=== PATIENT | female | born 2005 | race African-American/Black ===

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

== ENCOUNTER 2023-11-02 23:37 | Emergency (ER) | payer OTHER ==
[2023-11-03 00:08] LABS: BASOPHILS % (AUTO) 0.4 %; EOSINOPHILS % (AUTO) 0.6 %; HCT - HEMATOCRIT 36.1 % (37.0-47.0); HGB - HEMOGLOBIN 11.7 g/dL (12.0-16.0); LYMPHOCYTES # (AUTO) 2.7 10^3/uL (1.5-3.5); LYMPHOCYTES % (AUTO) 53.4 %; MEAN CORPUSCULAR HEMOGLOBIN 31.5 pg (27.0-31.0); MEAN CORPUSCULAR HGB CONC 32.4 g/dL (32.0-36.0); MEAN CORPUSCULAR VOLUME 97.3 fL (81.0-99.0); MONOCYTES # (AUTO) 0.5 10^3/uL (0.0-1.0); MONOCYTES % (AUTO) 9.4 %; NEUTROPHILS # (AUTO) 1.9 10^3/uL (1.5-6.6); NEUTROPHILS % (AUTO) 36.2 %; PLT - PLATELET COUNT 270 10^3/uL (130-450); RED BLOOD COUNT 3.71 10^6/uL (4.20-5.40); RED CELL DISTRIBUTION WIDTH 13.2 % (12.0-15.0); WHITE BLOOD COUNT 5.1 x10^3/uL (4.8-10.8)
[2023-11-03 00:24] LABS: ALBUMIN 4.2 g/dL (3.2-5.5); ALBUMIN/GLOBULIN RATIO 1.6 (1.0-2.2); BILIRUBIN,TOTAL 0.3 mg/dL (0.2-1.0); CALCIUM 9.1 mg/dL (8.5-10.3); CREATININE 0.7 mg/dL (0.6-1.3); POTASSIUM 4.2 mmol/L (3.5-4.5); TOTAL PROTEIN 6.9 g/dL (6.4-8.9)
[2023-11-03 00:39] LABS: BILIRUBIN,URINE NEGATIVE (NEGATIVE); GLUCOSE, URINE (UA) NEGATIVE (NEGATIVE); KETONES,URINE (UA) NEGATIVE (NEGATIVE); LEUKOCYTE ESTERASE, URINE NEGATIVE (NEGATIVE); NITRITE,URINE NEGATIVE (NEGATIVE); OCCULT BLOOD,URINE MODERATE (NEGATIVE); PROTEIN,URINE NEGATIVE (NEGATIVE); UROBILINOGEN,URINE 0.2 (NORMAL) E.U./dL (NORMAL)
[2023-11-03 00:45] LABS: HCG UR QUAL NEGATIVE
[2023-11-03 00:50] LABS: CLARITY,URINE CLEAR (CLEAR)
[2023-11-03 01:04] LABS: BACTERIA,URINE Few /HPF (None Seen); RBC,URINE 0-5 /HPF (0-5); SQUAMOUS EPITHELIAL CELL,UR FEW Squamous (<= Few)
--- NOTE | 2023-11-03 01:55 | ED Physician Documentation ---
PD HPI NVD - Stated complaint Stated Complaint: N/V/D - Chief complaint Chief Complaint: Abd Pain - History obtained from History obtained from: Patient - Additonal information Additional information: The patient comes to the emergency department chief complaint of nausea, vomiting, and diarrhea that started 6 days ago. She states that she just has a little nausea left but has been able to hold down water and soup for the last couple of days; however, she is continue to have watery diarrhea all week until the present time. She denies any fevers or chills. No body aches. No dysuria or vaginal symptoms. She is otherwise fairly healthy. Nobody else who ate the same food as her is sick. She has not done any exotic traveling or camping. No other complaints at this time. No sick contacts that she knows of. She is here because she is just concerned that her symptoms have gone on this long. She states she does not really have any abdominal pain except a little bit in her lower abdomen that feels like cramping and worsens right before she has a bowel movement. PD PAST MEDICAL HISTORY - Past Medical History Past Medical History: Yes - Past Surgical History Past Surgical History: No - Present Medications Home Medications: Ambulatory Orders Medication Instructions Recorded Confirmed Detropan 5 mg PO DAILY 11/02/23 Loperamide [Imodium] 2 mg PO BID PRN #10 cap 11/03/23 Ondansetron Odt [Zofran] 4 mg TL Q6H PRN #10 tablet 11/03/23 - Allergies Allergies/Adverse Reactions: Allergies Allergy/AdvReac Type Severity Reaction Status Date / Time Penicillins AdvReac Mild Unknown Verified 11/02/23 23:47 - Social History Does the pt smoke?: No Smoking Status: Never smoker Does the pt drink ETOH?: No Does the pt have substance abuse?: No - Immunizations Immunizations are current?: Yes - POLST Patient has POLST: No PD ED PE NORMAL - Vitals Vital signs reviewed: Yes - General General: Alert and oriented X 3, No acute distress, Well developed/nourished - HEENT HEENT: Atraumatic, EOMI, Moist mucous membranes - Neck Neck: Supple, no meningeal sign - Cardiac Cardiac: RRR, No murmur - Respiratory Respiratory: No respiratory distress, Clear bilaterally - Abdomen Abdomen: Soft, Non distended, Other (Slight tenderness throughout lower abdomen, no rebound or guarding.) - Derm Derm: Normal color, Warm and dry, No rash - Extremities Extremities: No deformity - Neuro Neuro: Other (Alert, grossly intact.) - Psych Psych: Normal mood, Normal affect Results - Vitals Vitals: Vital Signs - 24 hr 11/02/23 23:42 Temperature 36.5 C Heart Rate 64 Respiratory 16 Rate Blood Pressure 137/62 H O2 Saturation 100 Oxygen O2 Source Room air - Labs Labs: Laboratory Tests 11/02/23 11/02/23 11/03/23 23:59 23:59 00:12 WBC 5.1 RBC 3.71 L Hgb 11.7 L Hct 36.1 L MCV 97.3 MCH 31.5 H MCHC 32.4 RDW 13.2 Plt Count 270 MPV 9.0 Neut # (Auto) 1.9 Lymph # (Auto) 2.7 [place] # (Auto) 0.5 Eos # (Auto) 0.0 Baso # (Auto) 0.0 Absolute Nucleated RBC 0.00 Nucleated RBC % 0.0 Sodium 139 Potassium 4.2 Chloride 107 Carbon Dioxide 27 Anion Gap 5.0 L BUN 17 Creatinine 0.7 Estimated GFR (MDRD) 129 Glucose 96 Calcium 9.1 Total Bilirubin 0.3 AST 22 ALT 21 Alkaline Phosphatase 38 L Total Protein 6.9 Albumin 4.2 Globulin 2.7 Albumin/Globulin Ratio 1.6 Lipase 18 Urine Color YELLOW Urine Clarity CLEAR Urine pH 7.0 Ur Specific [place] 1.025 Urine Protein NEGATIVE Urine Glucose (UA) NEGATIVE Urine Ketones NEGATIVE Urine Occult Blood MODERATE H Urine Nitrite NEGATIVE Urine Bilirubin NEGATIVE Urine Urobilinogen 0.2 (NORMAL) Ur Leukocyte Esterase NEGATIVE Urine RBC 0-5 Urine WBC 4-5 Ur Squamous Epith Cells FEW Squamous Urine Bacteria Few Ur Microscopic Review INDICATED Urine Culture Comments NOT INDICATED Urine HCG, Qual 11/03/23 00:12 WBC RBC Hgb Hct MCV MCH MCHC RDW Plt Count MPV Neut # (Auto) Lymph # (Auto) [place] # (Auto) Eos # (Auto) Baso # (Auto) Absolute Nucleated RBC Nucleated RBC % Sodium Potassium Chloride Carbon Dioxide Anion Gap BUN Creatinine Estimated GFR (MDRD) Glucose Calcium Total Bilirubin AST ALT Alkaline Phosphatase Total Protein Albumin Globulin Albumin/Globulin Ratio Lipase Urine Color Urine Clarity Urine pH Ur Specific [place] Urine Protein Urine Glucose (UA) Urine Ketones Urine Occult Blood Urine Nitrite Urine Bilirubin Urine Urobilinogen Ur Leukocyte Esterase Urine RBC Urine WBC Ur Squamous Epith Cells Urine Bacteria Ur Microscopic Review Urine Culture Comments Urine HCG, Qual NEGATIVE PD Medical Decision Making - ED course Complexity details: reviewed results, re-evaluated patient, considered differential, d/w patient ED course: The patient was treated with Zofran and Imodium and worked up with labs, which were unremarkable. We have discussed that this is most likely a viral illness, and the timeline is consistent with the many other cases of the same thing that we have been seeing recently. I have discussed symptomatic management at home with the patient and who prescribed her Zofran and Imodium for there. We have discussed the need for follow-up with her primary care physician if her symptoms do not resolve within the next week. Departure - Departure Disposition: Home, Self Care Clinical Impression: Gastroenteritis Condition: Stable Instructions: ED Gastroenteritis Viral Prescriptions: Loperamide [Imodium] 2 mg PO BID PRN #10 cap PRN Reason: Diarrhea Ondansetron Odt [Zofran] 4 mg TL Q6H PRN #10 tablet PRN Reason: Nausea / Vomiting Comments: Your symptoms are most consistent with one of the many viruses that go around and cause such symptoms. Right now, we are seeing a lot of cases of vomiting and diarrhea going around the community and they are lasting a bit longer than usual. It is likely that you have picked up the same thing. We have given you doses of medication for nausea and for the diarrhea tonight and I have sent a prescription for the same to the [facility] pharmacy in [place]. You may take these medications as needed. Please be sure you are drinking plenty of fluids to help replace what you are losing from the diarrhea. Please follow-up with your primary doctor if you are not feeling better in the next week. Forms: PCP List, Activity restrictions
[2023-11-03] MEDS: ONDANSETRON ODT 4 MG TABLET TL STA (02:15)
[2023-11-03] MEDS: LOPERAMIDE 2 MG CAPSULE PO STA (02:15)
[2023-11-03 02:29] VITALS: BP 122/60; O2SAT 99
== END 2023-11-03 02:23 | disposition home or self-care (01) ==
LOC: ED 23:37
DX: K52.9 Noninfective gastroenteritis and colitis, unspecified (principal)
CPT/HCPCS: 36415; 80053; 81001; 81025; 83690; 85025; 99283; A9270; Q0162; 81003; 87086

== ENCOUNTER 2024-01-01 14:58 | Emergency (ER) | payer OTHER ==
--- NOTE | 2024-01-01 15:39 | ED Physician Documentation ---
History of Present Illness - Stated complaint Stated Complaint: ABD PX - Chief complaint Chief Complaint: Abd Pain - Additonal information Additional information: Patient is a 18-year-old female presenting to the emergency department with pel jacquelin pain and vaginal bleeding. She notes symptoms worsened around noon. She attempted to going to work today but had severe abdominal cramping. She notes she never had symptoms like this this severe. Last normal menstrual period was 1 month ago. She notes her symptoms feel similar to her menstrual period but much more severe and more bleeding than usual. She notes she went through 5 tampons since noon with her presentation at 12 on arrival.Patient denies any fevers chills nausea vomiting. She denies being . She has not been sexually active within the last month. No concerns for STDs today. She denies any unilateral pelvic pain. She has past medical history of bladder spasm but denies any other past medical history. PD PAST MEDICAL HISTORY - Past Medical History : Other Other Past Medical History: bladder spasms - Past Surgical History Past Surgical History: No - Present Medications Home Medications: Ambulatory Orders Medication Instructions Recorded Confirmed metroNIDAZOLE [Flagyl] 500 mg PO BID 7 Days #14 tablet 01/01/24 oxyBUTYnin chloride [Oxybutynin 5 mg PO DAILY 01/01/24 01/01/24 Chloride] - Allergies Allergies/Adverse Reactions: Allergies Allergy/AdvReac Type Severity Reaction Status Date / Time Penicillins AdvReac Mild Unknown Verified 11/02/23 23:47 - Social History Does the pt smoke?: No Smoking Status: Never smoker Does the pt drink ETOH?: No Does the pt have substance abuse?: No - Immunizations Immunizations are current?: Yes - POLST Patient has POLST: No PD ED PE NORMAL - Vitals Vital signs reviewed: Yes - General General: Alert and oriented X 3 - HEENT HEENT: Atraumatic - Neck Neck: Supple, no meningeal sign - Cardiac Cardiac: RRR, No murmur, No gallop, No rub - Respiratory Respiratory: No respiratory distress, Clear bilaterally - Abdomen Abdomen: Normal bowel sounds, Soft, Non tender, Other (No abdominal distention. Active bowel sounds on auscultation. Reproducible lower pelvic pain bilaterally with no CVA tenderness on examination.) - Back Back: No CVA TTP - Derm Derm: Normal color, Warm and dry, No rash - Extremities Extremities: No deformity - Neuro Neuro: Alert and oriented X 3 Eye Opening: Spontaneous Motor: Obeys Commands Verbal: Oriented GCS Score: 15 Results - Vitals Vitals: Oxygen O2 Source Room air - Labs Labs: Microbiology 01/01/24 19:48 Wet Prep - Final Genital - Vaginal Laboratory Tests 01/01/24 01/01/24 01/01/24 15:37 15:37 16:21 WBC 4.5 L RBC 4.12 L Hgb 12.6 Hct 39.0 MCV 94.7 MCH 30.6 MCHC 32.3 RDW 12.9 Plt Count 256 MPV 8.9 Neut # (Auto) 2.5 Lymph # (Auto) 1.5 [place] # (Auto) 0.5 Eos # (Auto) 0.0 Baso # (Auto) 0.0 Absolute Nucleated RBC 0.00 Nucleated RBC % 0.0 Sodium 136 Potassium 4.3 Chloride 104 Carbon Dioxide 27 Anion Gap 5.0 L BUN 14 Creatinine 0.7 Estimated GFR (MDRD) 129 Glucose 86 Calcium 9.1 Total Bilirubin 0.5 AST 19 ALT 11 Alkaline Phosphatase 38 L Total Protein 7.6 Albumin 4.3 Globulin 3.3 Albumin/Globulin Ratio 1.3 Lipase < 10 L Urine Color DARK YELLOW Urine Clarity CLEAR Urine pH 6.5 Ur Specific [place] >=1.030 H Urine Protein 100 H Urine Glucose (UA) NEGATIVE Urine Ketones 15 H Urine Occult Blood LARGE H Urine Nitrite NEGATIVE Urine Bilirubin SMALL H Urine Urobilinogen 1 (NORMAL) Ur Leukocyte Esterase NEGATIVE Urine RBC TNTC H Urine WBC 4-5 Ur Squamous Epith Cells RARE Squamous Urine Bacteria Rare Urine Mucus Few Strands Ur Microscopic Review INDICATED Urine Culture Comments NOT INDICATED Urine HCG, Qual NEGATIVE C. glabrata (PCR) C. krusei (PCR) Jil species DNA Chlam trachomat DNA PCR N.gonorrhoeae DNA (PCR) T. vaginalis (PCR) Bact Vaginosis (PCR) 01/01/24 01/01/24 19:48 19:48 WBC RBC Hgb Hct MCV MCH MCHC RDW Plt Count MPV Neut # (Auto) Lymph # (Auto) [place] # (Auto) Eos # (Auto) Baso # (Auto) Absolute Nucleated RBC Nucleated RBC % Sodium Potassium Chloride Carbon Dioxide Anion Gap BUN Creatinine Estimated GFR (MDRD) Glucose Calcium Total Bilirubin AST ALT Alkaline Phosphatase Total Protein Albumin Globulin Albumin/Globulin Ratio Lipase Urine Color Urine Clarity Urine pH Ur Specific [place] Urine Protein Urine Glucose (UA) Urine Ketones Urine Occult Blood Urine Nitrite Urine Bilirubin Urine Urobilinogen Ur Leukocyte Esterase Urine RBC Urine WBC Ur Squamous Epith Cells Urine Bacteria Urine Mucus Ur Microscopic Review Urine Culture Comments Urine HCG, Qual C. glabrata (PCR) NEGATIVE C. krusei (PCR) NEGATIVE Jil species DNA NEGATIVE Chlam trachomat DNA PCR NEGATIVE N.gonorrhoeae DNA (PCR) NEGATIVE T. vaginalis (PCR) NEGATIVE TNP Bact Vaginosis (PCR) POSITIVE A PD Medical Decision Making - ED course Complexity details: reviewed old records, reviewed results, re-evaluated patient ED course: Patient is a 18-year-old female presenting to the emergency department with vaginal bleeding and pelvic cramping that has been going on since early this afternoon. She notes pain was so severe it made her double over in pain. She denies any nausea or vomiting with her symptoms no fevers or chills. She notes she began her menstrual period this morning. She notes she has gone through 5 tampons since noon. This is abnormal for her. She denies being . Vital stable on arrival. Physical exam shows reproducible pelvic pain on examination with minimal bleeding noted on vaginal exam. Labs here showed no significant anemia. No significant leukocytosis urine shows large amount of blood but no signs of UTI. test is negative. Pending pelvic ultrasound here in emergency department to further evaluate patient's symptoms. Ultrasound shows ovarian 3.3 cm simple cyst (O-RADS 2 - almost certainly benign; less than 1% risk of malignancy) for which no further follow-up is necessary. No signs of torsion no other abnormality of the uterus or ovaries 7 mm endometrial complex. Pelvic exam shows no active vaginal bleeding, no CMT,. no adenexal tenderness. Swab shows no signs of trichomonas however given 20% clue cells present will start on flagyl for treatment of symptoms. Patient instructed to not drink alcohol while on this medication. She was instructed to return with any persistent vaginal bleeding, worsening cramping, fevers, chills, nausea, vomiting, abdominal pain or any other new or worsening symptoms. patient understands or is agreeable with this plan. Departure - Departure Disposition: 01 Home, Self Care Clinical Impression: Pelvic cramping, Abnormal uterine bleeding, Bacterial vaginosis Condition: Good Prescriptions: metroNIDAZOLE [Flagyl] 500 mg PO BID 7 Days #14 tablet Comments: Your ultrasound here in the emergency department did show a cyst on ultrasound however it is benign and low suspicion for any need for follow-up per ultrasound radiologist read. Recommend you return with any worsening abdominal pain n ausea vomiting. I have given you antibiotics for positive bacterial vaginosis test here in emergency department. You should monitor your symptoms at home if you develop any worsening cramping bleeding nausea vomiting return to the emergency department. Your test was negative. I will call you on results of gonorrhea and chlamydia however will not treat for them right now as your symptoms do not appear secondary to pelvic inflammatory disease. Return to the ED with any worsening symptoms. Do not drink on the antibiotic I am starting you on as it has large amount of side effects. Return to the ED with any new or worsening symptoms. Forms: PCP List Discharge Date/Time: 01/01/24 20:44
[2024-01-01 15:51] LABS: BASOPHILS % (AUTO) 0.4 %; EOSINOPHILS % (AUTO) 0.2 %; HGB - HEMOGLOBIN 12.6 g/dL (12.0-16.0); LYMPHOCYTES # (AUTO) 1.5 10^3/uL (1.5-3.5); LYMPHOCYTES % (AUTO) 33.7 %; MEAN CORPUSCULAR HEMOGLOBIN 30.6 pg (27.0-31.0); MEAN CORPUSCULAR HGB CONC 32.3 g/dL (32.0-36.0); MEAN CORPUSCULAR VOLUME 94.7 fL (81.0-99.0); MEAN PLATELET VOLUME 8.9 fL (7.9-10.8); MONOCYTES # (AUTO) 0.5 10^3/uL (0.0-1.0); MONOCYTES % (AUTO) 10.1 %; NEUTROPHILS # (AUTO) 2.5 10^3/uL (1.5-6.6); NEUTROPHILS % (AUTO) 55.4 %; PLT - PLATELET COUNT 256 10^3/uL (130-450); RED BLOOD COUNT 4.12 10^6/uL (4.20-5.40); RED CELL DISTRIBUTION WIDTH 12.9 % (12.0-15.0); WHITE BLOOD COUNT 4.5 x10^3/uL (4.8-10.8)
[2024-01-01 16:03] LABS: ALBUMIN 4.3 g/dL (3.2-5.5); ALBUMIN/GLOBULIN RATIO 1.3 (1.0-2.2); ALKALINE PHOSPHATASE 38 IU/L (42-121); ALT ALANINE AMINOTRANSFERASE 11 IU/L (10-60); AST ASPARTATE AMINOTRANSFERASE 19 IU/L (10-42); BILIRUBIN,TOTAL 0.5 mg/dL (0.2-1.0); BUN - BLOOD UREA NITROGEN 14 mg/dL (6-20); CALCIUM 9.1 mg/dL (8.5-10.3); CARBON DIOXIDE - CO2 27 mmol/L (21-32); CHLORIDE 104 mmol/L (101-111); CREATININE 0.7 mg/dL (0.6-1.3); GFR - MDRD 129 (>89); GLUCOSE 86 mg/dL (74-104); POTASSIUM 4.3 mmol/L (3.5-4.5); SODIUM 136 mmol/L (135-145); TOTAL PROTEIN 7.6 g/dL (6.4-8.9)
[2024-01-01 16:09] LABS: LIPASE < 10 U/L (11-82)
[2024-01-01 17:08] LABS: BILIRUBIN,URINE SMALL (NEGATIVE); GLUCOSE, URINE (UA) NEGATIVE (NEGATIVE); KETONES,URINE (UA) 15 mg/dL (NEGATIVE); LEUKOCYTE ESTERASE, URINE NEGATIVE (NEGATIVE); NITRITE,URINE NEGATIVE (NEGATIVE); OCCULT BLOOD,URINE LARGE (NEGATIVE); PH,URINE 6.5 PH (5.0-7.5); PROTEIN,URINE 100 mg/dL (NEGATIVE); UROBILINOGEN,URINE 1 (NORMAL) E.U./dL (NORMAL)
[2024-01-01 17:17] LABS: CLARITY,URINE CLEAR (CLEAR); HCG UR QUAL NEGATIVE
[2024-01-01 17:18] LABS: BACTERIA,URINE Rare /HPF (None Seen); MUCUS,URINE Few Strands; RBC,URINE TNTC /HPF (0-5); SQUAMOUS EPITHELIAL CELL,UR RARE Squamous (<= Few)
--- NOTE | 2024-01-01 19:04 | Ultrasound Report ---
PROCEDURE: Pelvic w/Doppler Complete INDICATIONS: pelvic bleeding and cramping. TECHNIQUE: Grayscale and color Doppler transabdominal sonographic images of the pelvis were obtained COMPARISON: None. FINDINGS: Uterus: The uterus is anteverted and measures 7.4 x 3.7 x 5.6 cm. The myometrium is heterogenous. The endometrium echo complex measures 7 mm in thickness. Ovaries: The right ovary measures 4.8 x 3.4 x 4 cm for a total volume of 34.2 mL. The left ovary darrell ures 3.0 x 2.4 x 2.8 cm for a total volume of 10.5 mL. Less than 12 follicles are present in both ova samantha. There is a 3.0 x 2.4 x 3.3 cm simple cyst in the right ovary. Vascular flow is present in both ovaries. IMPRESSION: 1.No sonographic evidence of ovarian torsion. 2.Right ovarian 3.3 cm simple cyst (O-RADS 2 - almost certainly benign; less than 1% risk of malignan cy) for which no further follow-up is necessary. 3.No other sonographic abnormality of the uterus or ovaries. Reviewed by: Carson Elmore MD on 01/01/2024 7:03 PM PDT Approved by: Carson Elmore MD on 01/01/2024 7:03 PM PDT Station ID: [id number]
[2024-01-01] MEDS: KETOROLAC 15 MG/ML VIAL IVP STA (19:58)
[2024-01-01 20:54] VITALS: BP 121/66; O2SAT 100
[2024-01-01 23:01] LABS: CHLAMYDIA TRACHOMATIS DNA NEGATIVE (NEGATIVE); NEISSERIA GONORRHOEAE DNA NEGATIVE (NEGATIVE)
[2024-01-02 00:52] LABS: BACTERIAL VAGINOSIS DNA POSITIVE (NEGATIVE); CANDIDA GLABRATA DNA NEGATIVE (NEGATIVE); CANDIDA GROUP DNA NEGATIVE (NEGATIVE); CANDIDA KRUSEI DNA NEGATIVE (NEGATIVE); TRICHOMONAS VAGINALIS DNA NEGATIVE (NEGATIVE)
== END 2024-01-01 20:44 | disposition home or self-care (01) ==
LOC: ED 14:58
DX: N76.0 Acute vaginitis (principal); B96.89 Other specified bacterial agents as the cause of diseases classified elsewhere; N93.9 Abnormal uterine and vaginal bleeding, unspecified; R10.2 Pelvic and perineal pain
CPT/HCPCS: 36415; 80053; 81001; 81003; 81025; 81514; 83690; 85025; 87086; 87210; 87491; 87591; 87661; 93975; 96374; 99284